=== PATIENT | male | born 1980 | race Caucasian/White ===

== ENCOUNTER 2019-07-08 09:30 | Outpatient (RCR) | payer BC | END 2019-07-11 | disposition still patient (30) | LOC: OT | DX: Z98.890 Other specified postprocedural states (principal) ==

== ENCOUNTER 2019-07-13 09:30 | Outpatient (RCR) | payer BC | END 2019-07-13 10:00 | disposition still patient (30) | LOC: OT 09:30 | DX: Z98.890 Other specified postprocedural states (principal) ==